=== PATIENT | female | born 1955 | race Caucasian/White ===

== ENCOUNTER 2017-06-17 09:53 | Emergency (ER) | payer BC ==
--- NOTE | 2017-06-17 10:41 | EDM.PDOC ---
<Larson,Lorene - Last Filed: 06/17/17 12:16> ED HPI GENERAL MEDICAL PROBLEM - General Chief Complaint: Cardiovascular Problem Stated Complaint: [id number] BLOOD PRESSURE AND NAUSEA. THREW UP. Time Seen by Provider: 06/17/17 10:41 - Related Data Allergies Allergy/AdvReac Type Severity Reaction Status Date / Time No Known Allergies Allergy Verified 01/06/14 14:20 Home Meds: Home Meds Aspirin [Low Dose Aspirin EC] 81 mg PO DAILY 01/06/14 [History] Hydrochlorothiazide 25 mg PO DAILY 01/06/14 [History] Metoprolol Succinate [Toprol XL] 25 mg PO DAILY 01/06/14 [History] Hydrochlorothiazide 25 mg PO DAILY 06/17/17 [History] Losartan Potassium [Cozaar] 100 mg PO DAILY 06/17/17 [History] Multivit with Calcium,Iron,Min [Essential Daily] 1 tab PO DAILY 06/17/17 [ History] Course - Vital Signs Last Recorded V/S: Last Vital Signs Temp 36.3 C 06/17/17 10:23 Pulse 70 06/17/17 10:23 Resp 16 06/17/17 10:23 BP 188/85 H 06/17/17 10:46 Pulse Ox 98 06/17/17 10:23 - Orders/Labs/Meds Orders: Active Orders 24 hr Category Date Time Status EKG Documentation Completion [RC] STAT Care 06/17/17 10:44 Active UA W/MICROSCOPIC [URIN] Stat Lab 06/17/17 11:49 Ordered Labs: Laboratory Tests 06/17/17 06/17/17 06/17/17 Range/Units 11:01 11:01 11:01 WBC 8.6 (5.0-10.0) 10^3/uL RBC 4.47 (4.2-5.4) 10^6/uL Hgb 14.2 (12.0-16.0) g/dL Hct 42.0 (37.0-47.0) % MCV 94.0 (80-100) fL MCH 31.8 (27.0-34.0) pg MCHC 33.8 (33.0-35.0) g/dL Plt Count 265 (150-450) 10^3/uL Neut % (Auto) 84.8 H (42.2-75.2) % Lymph % (Auto) 11.3 L (20.5-50.1) % [place] % (Auto) 3.6 (2-8) % Eos % (Auto) 0.1 L (1.0-3.0) % Baso % (Auto) 0.2 (0.0-1.0) % PT 9.8 (9.0-12.0) SEC INR 1.0 (0.9-1.2) APTT 24.8 (22.0-34.0) SEC Sodium 139 (135-145) mmol/L Potassium 3.5 L (3.6-5.0) mmol/L Chloride 106 (101-111) mmol/L Carbon Dioxide 27.0 (21.0-31.0) mmol/L Anion Gap 9.5 BUN 11 (7-18) mg/dL Creatinine 0.7 (0.6-1.3) mg/dL Est Cr Clr Drug Dosing 71.96 mL/min Estimated GFR (MDRD) > 60 BUN/Creatinine Ratio 15.71 Glucose 127 H (74-105) mg/dL Calcium 9.1 (8.4-10.2) mg/dl Magnesium 2.0 (1.8-2.5) mg/dL Total Bilirubin 0.7 (0.2-1.0) mg/dL AST 22 (10-42) IU/L ALT 18 (10-60) IU/L Alkaline Phosphatase 72 (42-121) IU/L Troponin I < 0.02 (0.00-0.02) ng/ml Total Protein 7.2 (6.7-8.2) g/dl Albumin 3.8 (3.2-5.5) g/dl Globulin 3.4 Albumin/Globulin Ratio 1.12 Urine Color (YELLOW) Urine Appearance (CLEAR) Urine pH (5.0-9.0) Ur Specific [place] (1.005-1.030) Urine Protein (NEGATIVE) Urine Glucose (UA) (NEGATIVE) Urine Ketones (NEGATIVE) Urine Occult Blood (NEGATIVE) Urine Nitrite (NEGATIVE) Urine Bilirubin (NEGATIVE) Urine Urobilinogen (0.2-1.0) mg/dL Ur Leukocyte Esterase (NEGATIVE) Urine RBC /HPF Urine WBC (0-5/HPF) /HPF Ur Epithelial Cells /HPF Urine Bacteria (0-FEW/HPF) /HPF 06/17/17 Range/Units 11:49 WBC (5.0-10.0) 10^3/uL RBC (4.2-5.4) 10^6/uL Hgb (12.0-16.0) g/dL Hct (37.0-47.0) % MCV (80-100) fL MCH (27.0-34.0) pg MCHC (33.0-35.0) g/dL Plt Count (150-450) 10^3/uL Neut % (Auto) (42.2-75.2) % Lymph % (Auto) (20.5-50.1) % [place] % (Auto) (2-8) % Eos % (Auto) (1.0-3.0) % Baso % (Auto) (0.0-1.0) % PT (9.0-12.0) SEC INR (0.9-1.2) APTT (22.0-34.0) SEC Sodium (135-145) mmol/L Potassium (3.6-5.0) mmol/L Chloride (101-111) mmol/L Carbon Dioxide (21.0-31.0) mmol/L Anion Gap BUN (7-18) mg/dL Creatinine (0.6-1.3) mg/dL Est Cr Clr Drug Dosing mL/min Estimated GFR (MDRD) BUN/Creatinine Ratio Glucose (74-105) mg/dL Calcium (8.4-10.2) mg/dl Magnesium (1.8-2.5) mg/dL Total Bilirubin (0.2-1.0) mg/dL AST (10-42) IU/L ALT (10-60) IU/L Alkaline Phosphatase (42-121) IU/L Troponin I (0.00-0.02) ng/ml Total Protein (6.7-8.2) g/dl Albumin (3.2-5.5) g/dl Globulin Albumin/Globulin Ratio Urine Color Yellow (YELLOW) Urine Appearance Clear (CLEAR) Urine pH 7.5 (5.0-9.0) Ur Specific [place] 1.015 (1.005-1.030) Urine Protein Negative (NEGATIVE) Urine Glucose (UA) Negative (NEGATIVE) Urine Ketones Negative (NEGATIVE) Urine Occult Blood Negative (NEGATIVE) Urine Nitrite Negative (NEGATIVE) Urine Bilirubin Negative (NEGATIVE) Urine Urobilinogen 0.2 (0.2-1.0) mg/dL Ur Leukocyte Esterase Negative (NEGATIVE) Urine RBC 0-5 /HPF Urine WBC 0-5 (0-5/HPF) /HPF Ur Epithelial Cells Rare /HPF Urine Bacteria Not seen (0-FEW/HPF) /HPF Meds: Medications Discontinued Medications Generic Name Dose Route Start Last Admin Trade Name Freq PRN Reason Stop Dose Admin Ondansetron HCl 4 mg 06/17/17 10:44 06/17/17 11:13 Zofran IV 06/17/17 10:45 4 mg ONETIME ONE Administration - Radiology Interpretation Free Text/Narrative:: Head ct without contrast: IMPRESSION: No acute cerebral hemorrhage or edema. Thank you for allowing us to participate in the care of your patient. Dictated and Authenticated by: Rama Menjivar MD 06/17/2017 12:12 PM Central Time ([place] & [place]) See rad report Departure - Departure Disposition: Home, Self-Care 01 Clinical Impression: Vertigo Instructions: Vertigo Referrals: Diane Rodriguez PA [Primary Care Provider] - Forms: ED Department Discharge Additional Instructions: Continue to monitor symptoms. If worsening vertigo or new neurologic symptoms such as slurred speech, weakness, worsening vision, you should return immediately to the ED. Otherwise make an appointment with your PCP for follow up of vertigo. You may take Meclizine 25 mg up to twice daily as needed for the vertigo symptoms. For hypertension take home medications with the exception of Metoprolol. Hold metoprolol for today due to slow heart rate at rest. You will need to follow up with you PCP for this. - My Orders Last 24 Hours: My Active Orders 06/17/17 10:44 EKG Documentation Completion [RC] STAT 06/17/17 11:49 UA W/MICROSCOPIC [URIN] Stat - Assessment/Plan Last 24 Hours: My Active Orders 06/17/17 10:44 EKG Documentation Completion [RC] STAT 06/17/17 11:49 UA W/MICROSCOPIC [URIN] Stat <Taye Serna - Last Filed: 06/17/17 12:27> ED HPI GENERAL MEDICAL PROBLEM - General Source of Information: Reports: Patient History Limitations: Reports: No Limitations - History of Present Illness INITIAL COMMENTS - FREE TEXT/NARRATIVE: Patient presents to the ED with symptoms of vertigo. She reports this morning she had severe symptoms of vertigo with the room spinning rapidly. It did not resolve with change in position and was accompanied by nausea. She reports she had been feeling well up until this morning. No recent cough, sore throat, rhinorrhea, congestion. No changes in hearing or tinnitus. She tried to go back to sleep. She then got up and walked to the bathroom. She remembers it being very difficult but denies feeling like she was going to the right or left. She did not fall. She has no history of trauma. She states her vision is changed in that it is difficult to focus with the room moving. There are no alleviating or aggravating factors. She has a history of hypertension and has not recently taken her medication. Did take ASA this AM. She is not diabetic. She did drive here today. Past Medical History HEENT History: Reports: Impaired Vision Cardiovascular History: Reports: Hypertension. Denies: [place], Syncope - Past Surgical History HEENT Surgical History: Reports: Adenoidectomy, Tonsillectomy Female Surgical History: Reports: Hysterectomy Musculoskeletal Surgical History: Reports: Carpal Tunnel, Knee Replacement, Shoulder Surgery Social & Family History - Family History Family Medical History: Noncontributory - Tobacco Use Smoking Status *Q: Never Smoker - Caffeine Use Caffeine Use: Reports: Soda - Recreational Drug Use Recreational Drug Use: No ED ROS GENERAL - Review of Systems Review Of Systems: See Below Constitutional: Denies: Fever, Chills, Diaphoresis HEENT: Denies: Ear Discharge, Ear Pain, Eye Discharge, Eye Pain, Hearing Loss, Rhinitis, Throat Pain Respiratory: Denies: Shortness of Breath, Wheezing, Cough Cardiovascular: Denies: Chest Pain, Dyspnea on Exertion, Palpitations Endocrine: Reports: No Symptoms GI/Abdominal: Denies: Abdominal Pain, Constipation, Diarrhea : Reports: No Symptoms Musculoskeletal: Reports: No Symptoms Neurological: Reports: Difficulty Walking. Denies: Pre-Existing Deficit, Syncope, Trouble Speaking, Weakness, Change in Speech Psychiatric: Reports: No Symptoms ED EXAM, GENERAL - Physical Exam Exam: See Below Exam Limited By: No Limitations General Appearance: Alert, WD/WN Eye Exam: Bilateral Eye: Nystagmus (lateral ), PERRL Ears: Normal External Exam, Normal Canal, Normal TMs Nose: Normal Inspection, Normal Mucosa Throat/Mouth: Normal Inspection, Normal Oropharynx, No Airway Compromise Head: Atraumatic, Normocephalic Neck: Normal Inspection, Supple, Non-Tender Respiratory/Chest: No Respiratory Distress, Lungs Clear, Normal Breath Sounds Cardiovascular: Regular Rate, Rhythm, No Murmur GI/Abdominal: Normal Bowel Sounds, Soft, Non-Tender, No Distention (Female) Exam: Deferred Rectal (Female) Exam: Deferred Extremities: Normal Inspection, Non-Tender Neurological: Alert, Oriented, Other (Lateral nystagmus noted. Gaze conjugate. No facial droop. No arm drift. Strength equal and symmetric. ) Psychiatric: Normal Affect, Normal Mood Skin Exam: Warm, Dry, Intact Lymphatic: No Adenopathy EKG INTERPRETATION EKG Date: 06/17/17 Time: 10:55 EKG Interpretation Comments: Sinus bradycardia without acute st segment changes Course - Orders/Labs/Meds Orders: Active Orders 24 hr Category Date Time Status EKG Documentation Completion [RC] STAT Care 06/17/17 10:44 Active UA W/MICROSCOPIC [URIN] Stat Lab 06/17/17 11:49 Ordered Labs: Laboratory Tests 06/17/17 06/17/17 06/17/17 Range/Units 11:01 11:01 11:01 WBC 8.6 (5.0-10.0) 10^3/uL RBC 4.47 (4.2-5.4) 10^6/uL Hgb 14.2 (12.0-16.0) g/dL Hct 42.0 (37.0-47.0) % MCV 94.0 (80-100) fL MCH 31.8 (27.0-34.0) pg MCHC 33.8 (33.0-35.0) g/dL Plt Count 265 (150-450) 10^3/uL Neut % (Auto) 84.8 H (42.2-75.2) % Lymph % (Auto) 11.3 L (20.5-50.1) % [place] % (Auto) 3.6 (2-8) % Eos % (Auto) 0.1 L (1.0-3.0) % Baso % (Auto) 0.2 (0.0-1.0) % PT 9.8 (9.0-12.0) SEC INR 1.0 (0.9-1.2) APTT 24.8 (22.0-34.0) SEC Sodium 139 (135-145) mmol/L Potassium 3.5 L (3.6-5.0) mmol/L Chloride 106 (101-111) mmol/L Carbon Dioxide 27.0 (21.0-31.0) mmol/L Anion Gap 9.5 BUN 11 (7-18) mg/dL Creatinine 0.7 (0.6-1.3) mg/dL Est Cr Clr Drug Dosing 71.96 mL/min Estimated GFR (MDRD) > 60 BUN/Creatinine Ratio 15.71 Glucose 127 H (74-105) mg/dL Calcium 9.1 (8.4-10.2) mg/dl Magnesium 2.0 (1.8-2.5) mg/dL Total Bilirubin 0.7 (0.2-1.0) mg/dL AST 22 (10-42) IU/L ALT 18 (10-60) IU/L Alkaline Phosphatase 72 (42-121) IU/L Troponin I < 0.02 (0.00-0.02) ng/ml Total Protein 7.2 (6.7-8.2) g/dl Albumin 3.8 (3.2-5.5) g/dl Globulin 3.4 Albumin/Globulin Ratio 1.12 Urine Color (YELLOW) Urine Appearance (CLEAR) Urine pH (5.0-9.0) Ur Specific [place] (1.005-1.030) Urine Protein (NEGATIVE) Urine Glucose (UA) (NEGATIVE) Urine Ketones (NEGATIVE) Urine Occult Blood (NEGATIVE) Urine Nitrite (NEGATIVE) Urine Bilirubin (NEGATIVE) Urine Urobilinogen (0.2-1.0) mg/dL Ur Leukocyte Esterase (NEGATIVE) Urine RBC /HPF Urine WBC (0-5/HPF) /HPF Ur Epithelial Cells /HPF Urine Bacteria (0-FEW/HPF) /HPF 06/17/17 Range/Units 11:49 WBC (5.0-10.0) 10^3/uL RBC (4.2-5.4) 10^6/uL Hgb (12.0-16.0) g/dL Hct (37.0-47.0) % MCV (80-100) fL MCH (27.0-34.0) pg MCHC (33.0-35.0) g/dL Plt Count (150-450) 10^3/uL Neut % (Auto) (42.2-75.2) % Lymph % (Auto) (20.5-50.1) % [place] % (Auto) (2-8) % Eos % (Auto) (1.0-3.0) % Baso % (Auto) (0.0-1.0) % PT (9.0-12.0) SEC INR (0.9-1.2) APTT (22.0-34.0) SEC Sodium (135-145) mmol/L Potassium (3.6-5.0) mmol/L Chloride (101-111) mmol/L Carbon Dioxide (21.0-31.0) mmol/L Anion Gap BUN (7-18) mg/dL Creatinine (0.6-1.3) mg/dL Est Cr Clr Drug Dosing mL/min Estimated GFR (MDRD) BUN/Creatinine Ratio Glucose (74-105) mg/dL Calcium (8.4-10.2) mg/dl Magnesium (1.8-2.5) mg/dL Total Bilirubin (0.2-1.0) mg/dL AST (10-42) IU/L ALT (10-60) IU/L Alkaline Phosphatase (42-121) IU/L Troponin I (0.00-0.02) ng/ml Total Protein (6.7-8.2) g/dl Albumin (3.2-5.5) g/dl Globulin Albumin/Globulin Ratio Urine Color Yellow (YELLOW) Urine Appearance Clear (CLEAR) Urine pH 7.5 (5.0-9.0) Ur Specific [place] 1.015 (1.005-1.030) Urine Protein Negative (NEGATIVE) Urine Glucose (UA) Negative (NEGATIVE) Urine Ketones Negative (NEGATIVE) Urine Occult Blood Negative (NEGATIVE) Urine Nitrite Negative (NEGATIVE) Urine Bilirubin Negative (NEGATIVE) Urine Urobilinogen 0.2 (0.2-1.0) mg/dL Ur Leukocyte Esterase Negative (NEGATIVE) Urine RBC 0-5 /HPF Urine WBC 0-5 (0-5/HPF) /HPF Ur Epithelial Cells Rare /HPF Urine Bacteria Not seen (0-FEW/HPF) /HPF Meds: Medications Discontinued Medications Generic Name Dose Route Start Last Admin Trade Name Freq PRN Reason Stop Dose Admin Ondansetron HCl 4 mg 06/17/17 10:44 06/17/17 11:13 Zofran IV 06/17/17 10:45 4 mg ONETIME ONE Administration - Re-Assessments/Exams Free Text/Narrative Re-Assessment/Exam: Discussed available laboratory results with the patient. Patient is feeling somewhat better. Vertigo symptoms are now mild. Nausea slightly improved. Would like to go home. BP improved with resting in ED. Will reassess when CT report returns. 06/17/17 11:40 Free Text/Narrative Re-Assessment/Exam: Discussed head CT and laboratory results. She is feeling better after some sleep. She is able to ambulate with me in the [place]. Repeat neuro exam unchanged. Vertigo symptoms improved for patient. Will give Antivert and have her follow up with her PCP. She needs to return immediately for worsening symptoms or new neurologic symptoms which were discussed with the patient. 06/17/17 12:21 Departure - Departure Time of Disposition: 12:23 Condition: Fair - My Orders Last 24 Hours: My Active Orders 06/17/17 10:44 EKG Documentation Completion [RC] STAT 06/17/17 11:49 UA W/MICROSCOPIC [URIN] Stat - Assessment/Plan Last 24 Hours: My Active Orders 06/17/17 10:44 EKG Documentation Completion [RC] STAT 06/17/17 11:49 UA W/MICROSCOPIC [URIN] Stat
[2017-06-17] MEDS ORDERED: Ondansetron 4 MG/2 ML SDV IV ONE (10:44)
[2017-06-17 11:29] LABS: CHLORIDE,CL 106 mmol/L (101-111); SODIUM,NA 139 mmol/L (135-145)
--- NOTE | 2017-06-19 13:21 | EKG ---
06/17/2017- ELA INGRAM - FINDINGS: EKG, per my reading, shows sinus rhythm at the rate of 59. MOD /[id number]
== END 2017-06-17 12:37 | disposition home or self-care (01) ==
LOC: DL.ED 09:53
DX: R42 Dizziness and giddiness (principal); I10 Essential (primary) hypertension; Z79.82 Long term (current) use of aspirin; Z79.899 Other long term (current) drug therapy
CPT/HCPCS: 36415; 70450; 80053; 81001; 83735; 84484; 85025; 85610; 85730; 93005; 96374; 99284; J2405

== ENCOUNTER 2019-10-15 18:31 | Emergency (ER) | payer MEDICARE, OTHER ==
[2019-10-15 20:02] LABS: ANION GAP 11.6 mEq/L (7-13)
--- NOTE | 2019-10-15 20:20 | CR ---
PROCEDURE INFORMATION: Exam: XR Chest, 2 Views Exam date and time: 10/15/2019 8:08 PM Age: 64 years old Clinical indication: Cough and fever and shortness of breath; Additional info: Cough fever SOB TECHNIQUE: Imaging protocol: XR of the chest Views: 2 views. COMPARISON: No relevant prior studies available. FINDINGS: Lungs: Unremarkable. No consolidation. Pleural space: Unremarkable. No pleural effusion. No pneumothorax. Heart/Mediastinum: Unremarkable. No cardiomegaly. Bones/joints: Unremarkable. IMPRESSION: No acute findings.
[2019-10-15] MEDS ORDERED: Albuterol/Ipratropium 3.0-0.5 MG/3 ML Neb Soln NEB ONE (20:40)
[2019-10-15] MEDS ORDERED: predniSONE 20 MG Tab PO ONE (20:40)
--- NOTE | 2019-10-15 20:55 | EDM.PDOC ---
ED HPI GENERAL MEDICAL PROBLEM - General Chief Complaint: Respiratory Problem Stated Complaint: COUGH, THROWING UP, CHEST HURTS Time Seen by Provider: 10/15/19 20:45 Source of Information: Reports: Patient History Limitations: Reports: No Limitations - History of Present Illness INITIAL COMMENTS - FREE TEXT/NARRATIVE: cough fever nauseous not feeling well concerned with covid. - Related Data Allergies Allergy/AdvReac Type Severity Reaction Status Date / Time No Known Allergies Allergy Verified 10/15/19 19:13 Home Meds: Home Meds Metoprolol Succinate [Toprol XL] 25 mg PO DAILY 01/06/14 [History] hydroCHLOROthiazide [Hydrochlorothiazide] 25 mg PO DAILY 01/06/14 [History] Losartan Potassium [Cozaar] 100 mg PO DAILY 06/17/17 [History] Multivit with Calcium,Iron,Min [Essential Daily] 1 tab PO DAILY 06/17/17 [History] Past Medical History HEENT History: Reports: Impaired Vision Cardiovascular History: Reports: Hypertension - Infectious Disease History Infectious Disease History: Reports: Chicken Pox, Measles, Mumps - Past Surgical History HEENT Surgical History: Reports: Adenoidectomy, Tonsillectomy Female Surgical History: Reports: Hysterectomy Musculoskeletal Surgical History: Reports: Carpal Tunnel, Knee Replacement, Shoulder Surgery Social & Family History - Family History Family Medical History: Noncontributory - Tobacco Use Smoking Status *Q: Never Smoker Second Hand Smoke Exposure: No - Caffeine Use Caffeine Use: Reports: None - Recreational Drug Use Recreational Drug Use: No ED ROS GENERAL - Review of Systems Review Of Systems: Comprehensive ROS is negative, except as noted in HPI. ED EXAM, GENERAL - Physical Exam Exam: See Below Exam Limited By: No Limitations General Appearance: Alert, WD/WN, Mild Distress, Other (discomfort) Ears: Hearing Grossly Normal Throat/Mouth: Normal Voice, No Airway Compromise Head: Atraumatic Neck: Non-Tender, Full Range of Motion Respiratory/Chest: No Accessory Muscle Use, Decreased Breath Sounds, Rhonchi, Wheezing Cardiovascular: Regular Rate, Rhythm GI/Abdominal: Soft, Non-Tender Neurological: Alert, Oriented, Normal Cognition, Normal Gait, No Motor/Sensory Deficits Psychiatric: Normal Affect, Normal Mood Skin Exam: Warm, Dry, Normal Color Lymphatic: No Adenopathy Course - Vital Signs Last Recorded V/S: Last Vital Signs Temp 37.6 C 10/15/19 19:14 Pulse 108 H 10/15/19 19:14 Resp 21 H 10/15/19 19:14 BP 161/76 H 10/15/19 19:14 Pulse Ox 97 10/15/19 19:14 - Orders/Labs/Meds Labs: Laboratory Tests 10/15/19 10/15/19 10/15/19 Range/Units 19:32 19:32 19:32 WBC 11.1 H (5.0-10.0) 10^3/uL RBC 4.36 (4.2-5.4) 10^6/uL Hgb 13.6 (12.0-16.0) g/dL Hct 40.6 (37.0-47.0) % MCV 93.1 (80-100) fL MCH 31.2 (27.0-34.0) pg MCHC 33.5 (33.0-35.0) g/dL Plt Count 265 (150-450) 10^3/uL Neut % (Auto) 70.3 (42.2-75.2) % Lymph % (Auto) 19.1 L (20.5-50.1) % [place] % (Auto) 6.6 (2-8) % Eos % (Auto) 3.7 H (1.0-3.0) % Baso % (Auto) 0.3 (0.0-1.0) % Sodium 144 (136-145) mmol/L Potassium 2.6 L (3.5-5.1) mmol/L Chloride 104 (98-107) mmol/L Carbon Dioxide 31 (21-32) mmol/L Anion Gap 11.6 (7-13) mEq/L BUN 9 (7-18) mg/dL Creatinine 1.04 H (0.55-1.02) mg/dL Est Cr Clr Drug Dosing 46.57 mL/min Estimated GFR (MDRD) 53 BUN/Creatinine Ratio 8.7 (No establ ref range) Glucose 133 H (74-99) mg/dL Lactic Acid 2.2 H* (0.4-2.0) mmol/L Calcium 8.8 (8.5-10.1) mg/dL Total Bilirubin 0.8 (0.2-1.0) mg/dL AST 18 (15-37) U/L ALT 22 (14-59) U/L Alkaline Phosphatase 85 (46-116) U/L Total Protein 7.4 (6.4-8.2) g/dL Albumin 3.4 (3.4-5.0) g/dL Globulin 4.0 Albumin/Globulin Ratio 0.9 COVID-19 ([facility]) (NEGATIVE) 10/15/19 Range/Units 19:33 WBC (5.0-10.0) 10^3/uL RBC (4.2-5.4) 10^6/uL Hgb (12.0-16.0) g/dL Hct (37.0-47.0) % MCV (80-100) fL MCH (27.0-34.0) pg MCHC (33.0-35.0) g/dL Plt Count (150-450) 10^3/uL Neut % (Auto) (42.2-75.2) % Lymph % (Auto) (20.5-50.1) % [place] % (Auto) (2-8) % Eos % (Auto) (1.0-3.0) % Baso % (Auto) (0.0-1.0) % Sodium (136-145) mmol/L Potassium (3.5-5.1) mmol/L Chloride (98-107) mmol/L Carbon Dioxide (21-32) mmol/L Anion Gap (7-13) mEq/L BUN (7-18) mg/dL Creatinine (0.55-1.02) mg/dL Est Cr Clr Drug Dosing mL/min Estimated GFR (MDRD) BUN/Creatinine Ratio (No establ ref range) Glucose (74-99) mg/dL Lactic Acid (0.4-2.0) mmol/L Calcium (8.5-10.1) mg/dL Total Bilirubin (0.2-1.0) mg/dL AST (15-37) U/L ALT (14-59) U/L Alkaline Phosphatase (46-116) U/L Total Protein (6.4-8.2) g/dL Albumin (3.4-5.0) g/dL Globulin Albumin/Globulin Ratio COVID-19 ([facility]) Negative (NEGATIVE) Meds: Medications Discontinued Medications Generic Name Dose Route Start Last Admin Trade Name Freq PRN Reason Stop Dose Admin Albuterol/Ipratropium 3 ml 10/15/19 20:40 10/15/19 20:53 Duoneb 3.0-0.5 Mg/3 Ml NEB 10/15/19 20:41 3 ml ONETIME ONE Administration Prednisone 20 mg 10/15/19 20:40 10/15/19 20:52 Prednisone PO 10/15/19 20:41 20 mg ONETIME ONE Administration - Re-Assessments/Exams Free Text/Narrative Re-Assessment/Exam: 10/15/19 20:46 results discussed with pt Departure - Departure Time of Disposition: 21:07 Disposition: Home, Self-Care 01 Condition: Good Clinical Impression: Bronchospasm with bronchitis, acute - Discharge Information Instructions: Acute Bronchitis, Adult, [id number] Forms: ED Department Discharge Additional Instructions: 1) rest and sleep as much as possible 2) don't lay flat to sleep 3) take tylneol or motrin as needed for fever 4) use neb twice daily for breathing 5) follow up at clinic rx given; medrol ana duoneb bid prn x 1 Sepsis Event Note (ED) - Evaluation Sepsis Screening Result: No Definite Risk - Focused Exam Vital Signs: Vital Signs Temp Pulse Resp BP Pulse Ox 10/15/19 19:14 37.6 C 108 H 21 H 161/76 H 97
== END 2019-10-15 21:07 | disposition home or self-care (01) ==
LOC: DL.ED 18:31
DX: J20.9 Acute bronchitis, unspecified (principal); I10 Essential (primary) hypertension; Z79.899 Other long term (current) drug therapy; Z20.828 Contact with and (suspected) exposure to other viral communicable diseases
CPT/HCPCS: 36415; 71046; 80053; 83605; 85025; 93005; 99283; 99284-25; J7512; J7620-GY; U0002

== ENCOUNTER 2020-11-05 16:25 | Emergency (ER) | payer MEDICARE, OTHER ==
[2020-11-05] MEDS ORDERED: Levofloxacin 500 MG Tab PO ONE (16:26)
[2020-11-05] MEDS ORDERED: Benzonatate 100 MG Cap PO ONE (16:26)
[2020-11-05] MEDS ORDERED: Sodium Chloride 0.9% 10 ML Syringe FLUSH PRN (18:14)
[2020-11-05] MEDS ORDERED: Sodium Chloride 0.9% 1,000 ML IV ONE (18:15)
[2020-11-05] MEDS ORDERED: Acetaminophen 325 MG Tab PO ONE (18:17)
--- NOTE | 2020-11-05 18:20 | EDM.PDOC ---
<Haja Nur - Last Filed: 11/05/20 18:14> ED HPI GENERAL MEDICAL PROBLEM - General Chief Complaint: Respiratory Problem Stated Complaint: COUGH, RUNNY NOSE, HEADACHE IN LT [facility] Time Seen by Provider: 11/05/20 18:14 Source of Information: Reports: Patient History Limitations: Reports: No Limitations - History of Present Illness INITIAL COMMENTS - FREE TEXT/NARRATIVE: 65 y/o F c/o cough for 2 weeks which began producing yellow sputum 2 days ago. Today the pt states she has had fever, chills, srivastava, fatigue. She does not know exactly what her temp has been. The srivastava is over the L eye constant and sharp. She reports decreased appetite over the last few days. She denies trauma, NV, cp, db, neck pn, pelvic pn, constipation, diff voiding, extremity pain. Hx of htn. Onset: Gradual Duration: Day(s): Location: Reports: Head, Chest left mandaen Pain Score (Numeric/FACES): 5 - Related Data Allergies Allergy/AdvReac Type Severity Reaction Status Date / Time No Known Allergies Allergy Verified 11/05/20 17:02 Home Meds: Home Meds Metoprolol Succinate [Toprol XL] 25 mg PO DAILY 01/06/14 [History] hydroCHLOROthiazide [Hydrochlorothiazide] 25 mg PO DAILY 01/06/14 [History] Losartan Potassium [Cozaar] 100 mg PO DAILY 06/17/17 [History] Multivit with Calcium,Iron,Min [Essential Daily] 1 tab PO DAILY 06/17/17 [History] Past Medical History HEENT History: Reports: Impaired Vision Cardiovascular History: Reports: Hypertension Respiratory History: Reports: None Gastrointestinal History: Reports: None Genitourinary History: Reports: None Musculoskeletal History: Reports: None Neurological History: Reports: None Psychiatric History: Reports: None Endocrine/Metabolic History: Reports: None Hematologic History: Reports: None Immunologic History: Reports: None Oncologic (Cancer) History: Reports: None Dermatologic History: Reports: None - Infectious Disease History Infectious Disease History: Reports: Chicken Pox, Measles, Mumps - Past Surgical History HEENT Surgical History: Reports: Adenoidectomy, Tonsillectomy Female Surgical History: Reports: Hysterectomy Musculoskeletal Surgical History: Reports: Carpal Tunnel, Knee Replacement, Shoulder Surgery Social & Family History - Family History Family Medical History: No Pertinent Family History - Tobacco Use Tobacco Use Status *Q: Never Tobacco User Second Hand Smoke Exposure: No - Caffeine Use Caffeine Use: Reports: None - Recreational Drug Use Recreational Drug Use: No ED ROS GENERAL - Review of Systems Review Of Systems: Comprehensive ROS is negative, except as noted in HPI. ED EXAM, GENERAL - Physical Exam Exam: See Below Exam Limited By: No Limitations General Appearance: Alert, No Apparent Distress Eye Exam: Bilateral Eye: PERRL Nose: Normal Inspection, Normal Mucosa, No Blood Throat/Mouth: Normal Inspection, Normal Lips, Normal Teeth, Normal Gums, Normal Oropharynx, Normal Voice, No Airway Compromise Head: Atraumatic, Normocephalic Neck: Normal Inspection, Supple, Non-Tender, Full Range of Motion Respiratory/Chest: Other (Course lung sounds. ) Cardiovascular: Regular Rate, Rhythm, Tachycardia Peripheral Pulses: 2+: Radial (L), Radial (R) GI/Abdominal: Soft, Non-Tender (Female) Exam: Deferred Rectal (Female) Exam: Deferred Back Exam: Normal Inspection, Full Range of Motion Extremities: Normal Inspection, Normal Range of Motion, Non-Tender, Normal Capillary Refill, No Pedal Edema Neurological: Alert, Oriented, CN II-XII Intact, Normal Cognition, Normal Gait, Normal Reflexes, No Motor/Sensory Deficits Psychiatric: Normal Affect, Normal Mood Skin Exam: Dry, Intact, Other (hot to the touch) Departure - Departure Disposition: Home, Self-Care 01 Clinical Impression: URI (upper respiratory infection) Qualifiers: URI type: unspecified URI Qualified Code(s): J06.9 - Acute upper respiratory infection, unspecified - Discharge Information Instructions: Upper Respiratory Infection, Adult, [id number], Community- Acquired Pneumonia, Adult, [id number] Forms: ED Department Discharge Additional Instructions: rest diet as tolerated levaquin 750mg daily for one week deysi celeste 200mg every 8 hours as needed for cough tylenol 500mg every 4 hours as needed for discomfort clinic follow up recheck next week sooner if difficulty breathing Sepsis Event Note (ED) - Evaluation Sepsis Screening Result: Possible Sepsis Risk <Chelsie Napier - Last Filed: 11/06/20 02:40> ED HPI GENERAL MEDICAL PROBLEM - History of Present Illness INITIAL COMMENTS - FREE TEXT/NARRATIVE: Appetite poo, not eaten today. Only sips fluid. Hx CoVID in January, asymptomatic. Unvaccinated. Non Smoker. No hx asthma or COPD Course - Vital Signs Last Recorded V/S: Last Vital Signs Temp 99.8 F 11/05/20 16:58 Pulse 110 H 11/05/20 16:58 Resp 20 11/05/20 16:58 BP 139/106 H 11/05/20 16:58 Pulse Ox 92 L 11/05/20 16:58 - Orders/Labs/Meds Orders: Active Orders 24 hr Category Date Time Status CULTURE BLOOD [BC] Stat Lab 11/05/20 18:28 Received CULTURE BLOOD [BC] Stat Lab 11/05/20 18:33 Received CULTURE STREP A CONFIRMATION [] Stat Lab 11/05/20 16:50 Results STREP SCRN A RAPID W CULT CONF [] Stat Lab 11/05/20 16:50 Results Blood Culture x2 Reflex Set [OM.PC] Stat Ot 11/05/20 18:14 Ordered Isolation [COMM] Routine Ot 11/05/20 18:16 Active Peripheral IV Insertion Adult [OM.PC] Stat Ot 11/05/20 18:15 Ordered Labs: Laboratory Tests 11/05/20 11/05/20 11/05/20 Range/Units 16:50 18:28 18:28 WBC 14.2 H (5.0-10.0) 10^3/uL RBC 5.06 (4.2-5.4) 10^6/uL Hgb 15.5 D (12.0-16.0) g/dL Hct 47.0 (37.0-47.0) % MCV 92.9 (80-100) fL MCH 30.6 (27.0-34.0) pg MCHC 33.0 (33.0-35.0) g/dL Plt Count 307 (150-450) 10^3/uL Neut % (Auto) 74.1 (42.2-75.2) % Lymph % (Auto) 16.2 L (20.5-50.1) % Rogers % (Auto) 7.0 (2-8) % Eos % (Auto) 2.6 (1.0-3.0) % Baso % (Auto) 0.1 (0.0-1.0) % Sodium 139 (136-145) mmol/L Potassium 3.6 (3.5-5.1) mmol/L Chloride 100 (98-107) mmol/L Carbon Dioxide 29 (21-32) mmol/L Anion Gap 13.6 H (7-13) mEq/L BUN 10 (7-18) mg/dL Creatinine 1.04 H (0.55-1.02) mg/dL Est Cr Clr Drug Dosing 45.95 mL/min Estimated GFR (MDRD) 53 BUN/Creatinine Ratio 9.6 (No establ ref range) Glucose 123 H (70-99) mg/dL Lactic Acid (0.4-2.0) mmol/L Calcium 9.3 (8.5-10.1) mg/dL Total Bilirubin 1.1 H (0.2-1.0) mg/dL AST 16 (15-37) U/L ALT 20 (14-59) U/L Alkaline Phosphatase 112 (46-116) U/L C-Reactive Protein 4.3 H (0.0-0.9) mg/dL Total Protein 8.2 (6.4-8.2) g/dL Albumin 3.9 (3.4-5.0) g/dL Globulin 4.3 Albumin/Globulin Ratio 0.9 SARS-CoV-2 RNA ([facility]) Negative (NEGATIVE) 11/05/20 Range/Units 18:28 WBC (5.0-10.0) 10^3/uL RBC (4.2-5.4) 10^6/uL Hgb (12.0-16.0) g/dL Hct (37.0-47.0) % MCV (80-100) fL MCH (27.0-34.0) pg MCHC (33.0-35.0) g/dL Plt Count (150-450) 10^3/uL Neut % (Auto) (42.2-75.2) % Lymph % (Auto) (20.5-50.1) % Rogers % (Auto) (2-8) % Eos % (Auto) (1.0-3.0) % Baso % (Auto) (0.0-1.0) % Sodium (136-145) mmol/L Potassium (3.5-5.1) mmol/L Chloride (98-107) mmol/L Carbon Dioxide (21-32) mmol/L Anion Gap (7-13) mEq/L BUN (7-18) mg/dL Creatinine (0.55-1.02) mg/dL Est Cr Clr Drug Dosing mL/min Estimated GFR (MDRD) BUN/Creatinine Ratio (No establ ref range) Glucose (70-99) mg/dL Lactic Acid 1.0 (0.4-2.0) mmol/L Calcium (8.5-10.1) mg/dL Total Bilirubin (0.2-1.0) mg/dL AST (15-37) U/L ALT (14-59) U/L Alkaline Phosphatase (46-116) U/L C-Reactive Protein (0.0-0.9) mg/dL Total Protein (6.4-8.2) g/dL Albumin (3.4-5.0) g/dL Globulin Albumin/Globulin Ratio SARS-CoV-2 RNA ([facility]) (NEGATIVE) Meds: Medications Discontinued Medications Generic Name Dose Route Start Last Admin Trade Name Freq PRN Reason Stop Dose Admin Acetaminophen 975 mg 11/05/20 18:17 11/05/20 18:40 Acetaminophen 325 Mg Tab PO 11/05/20 18:18 975 mg NOW ONE Administration Albuterol/Ipratropium 3 ml 11/05/20 19:28 11/05/20 19:52 Albuterol/Ipratropium 3.0-0.5 Mg/3 Ml Neb Soln NEB 11/05/20 19:29 3 ml ONETIME ONE Administration Benzonatate Confirm 11/05/20 20:31 Benzonatate 100 Mg Cap Administered 11/05/20 20:32 Dose 400 mg .ROUTE .STK-MED ONE Sodium Chloride 1,000 mls @ 999 mls/hr 11/05/20 18:15 11/05/20 18:40 Normal Saline IV 11/05/20 19:15 999 mls/hr .BOLUS ONE Administration Ceftriaxone Sodium 1 gm/ 50 mls @ 100 mls/hr 11/05/20 19:28 11/05/20 19:52 Sodium Chloride IV 11/05/20 19:57 100 mls/hr ONETIME ONE Administration Levofloxacin Confirm 11/05/20 20:32 Levofloxacin 500 Mg Tab Administered 11/05/20 20:33 Dose 500 mg .ROUTE .STK-MED ONE Sodium Chloride 10 ml 11/05/20 18:14 11/05/20 18:40 Sodium Chloride 0.9% 10 Ml Syringe FLUSH 10 ml ASDIRECTED PRN Administration Keep Vein Open Departure - Departure Time of Disposition: 20:20 Condition: Good - Discharge Information *PRESCRIPTION DRUG MONITORING PROGRAM REVIEWED*: No *COPY OF PRESCRIPTION DRUG MONITORING REPORT IN PATIENT SUBHASH: No Sepsis Event Note (ED) - Focused Exam Vital Signs: Vital Signs Temp Pulse Resp BP Pulse Ox 11/05/20 16:58 99.8 F 110 H 20 139/106 H 92 L
[2020-11-05 19:00] LABS: ANION GAP 13.6 mEq/L (7-13)
[2020-11-05] MEDS ORDERED: cefTRIAXone 1 GM in Sodium Chloride 0.9% 50 ML IV ONE (19:28)
[2020-11-05] MEDS ORDERED: Albuterol/Ipratropium 3.0-0.5 MG/3 ML Neb Soln NEB ONE (19:28)
--- NOTE | 2020-11-05 19:36 | CR ---
PROCEDURE INFORMATION: Exam: XR Chest Exam date and time: 11/05/2020 7:01 PM Age: 65 years old Clinical indication: Cough and fever; Additional info: Cough, fever TECHNIQUE: Imaging protocol: XR of the chest. Views: 2 views. COMPARISON: CR Chest 2V 10/15/2019 8:08 PM FINDINGS: Lungs: Unremarkable. No consolidation. Pleural spaces: Unremarkable. No pleural effusion. No pneumothorax. Heart/Mediastinum: Unremarkable. No cardiomegaly. Bones/joints: Age appropriate. IMPRESSION: 1. No active disease of the chest. No pneumonia. 2. No significant interval change when compared to the CR Chest 2V 10/15/2019 8:08 PM.
[2020-11-05] MEDS ORDERED: Benzonatate 100 MG Cap ONE (20:31)
[2020-11-05] MEDS ORDERED: Levofloxacin 500 MG Tab ONE (20:32)
== END 2020-11-05 20:43 | disposition home or self-care (01) ==
LOC: DL.ED 16:25
DX: J06.9 Acute upper respiratory infection, unspecified (principal); I10 Essential (primary) hypertension; Z79.899 Other long term (current) drug therapy; Z20.822 Contact with and (suspected) exposure to COVID-19
CPT/HCPCS: 36415; 71046; 80053; 83605; 85025; 86140; 87040; 87081; 87430; 96365; 99284; A9270; J0696; J7030; U0002; J7620-GY

== ENCOUNTER 2022-08-18 07:26 | Day surgery (SDC) | payer MEDICARE, OTHER ==
[2022-08-18] MEDS ORDERED: Sodium Chloride 0.9% 10 ML Syringe IV ONE (07:27)
[2022-08-18] MEDS ORDERED: Dexamethasone 4 MG/ML SDV IV ONE (07:27)
[2022-08-18] MEDS ORDERED: Midazolam 1 MG/ML 2 ML SDV IV ONE (07:27)
[2022-08-18] MEDS ORDERED: Phenylephrine 10% Ophth Soln 5 ML Bot EYELF PRN (07:30)
[2022-08-18] MEDS ORDERED: Sodium Chloride 0.9% 10 ML Syringe FLUSH PRN (07:30)
[2022-08-18] MEDS ORDERED: Cataract Ophth Solution EYELF ONE (07:30)
[2022-08-18] MEDS ORDERED: Ondansetron 4 MG/2 ML SDV IVPUSH PRN (07:30)
[2022-08-18] MEDS ORDERED: Povidone-Iodine 5% Sterile Ophth Soln 30 ML Bottle EYELF ONE ×2 (07:30→08:37)
[2022-08-18] MEDS ORDERED: Moxifloxacin 0.5% Ophth Soln 3 ML Bottle EYELF ONE (07:30)
[2022-08-18] MEDS ORDERED: Acetaminophen/Codeine 300-30 MG Tab PO PRN (07:30)
[2022-08-18] MEDS ORDERED: Acetaminophen 325 MG Tab PO PRN (07:30)
[2022-08-18] MEDS ORDERED: Timolol Maleate 0.5% Ophth Soln 5 ML Bottle EYELF ONE (07:30)
[2022-08-18] MEDS ORDERED: Proparacaine 0.5% Ophth Soln 15 ML Bottle EYELF ONE ×2 (07:30→08:36)
[2022-08-18] MEDS ORDERED: Tropicamide 1% Ophth Soln 15 ML Bottle EYELF ONE (07:30)
[2022-08-18] MEDS ORDERED: Dexamethasone/Neomycin/Polymyxin B Ophth Oint 3.5 GM Tube EYELF ONE (08:37)
[2022-08-18] MEDS ORDERED: Apraclonidine 0.5% Ophth Soln 5 ML Bot EYELF ONE (08:37)
[2022-08-18] MEDS ORDERED: Lidocaine 1% 30 ML SDV ONE (08:37)
[2022-08-18] MEDS ORDERED: Diclofenac Sodium 0.1% Ophth Soln 5 ML Bottle EYELF ONE (08:37)
[2022-08-18] MEDS ORDERED: Balanced Salt Solution Ophth Irrig 500 ML Bottle IOCULAR ONE (08:38)
[2022-08-18] MEDS ORDERED: Chondroitin Sulfate/Hyaluronate Sodium Ophth Inj 0.75 ML Syringe EYELF ONE (08:38)
[2022-08-18] MEDS ORDERED: Vancomycin 500 MG SDV EYELF ONE (08:38)
== END 2022-08-18 09:16 | disposition home or self-care (01) ==
LOC: DL.SDS 07:26
PROVIDERS: ATTEND Ophthalmology
DX: H25.812 Combined forms of age-related cataract, left eye (principal); M79.7 Fibromyalgia; I20.9 Angina pectoris, unspecified; I10 Essential (primary) hypertension; Z90.710 Acquired absence of both cervix and uterus; Z90.89 Acquired absence of other organs; Z96.653 Presence of artificial knee joint, bilateral; Z79.82 Long term (current) use of aspirin; Z79.899 Other long term (current) drug therapy
CPT/HCPCS: 00142; 66984; A9270; J1100; J2250; J3370; V2632; J3490

== ENCOUNTER 2022-10-04 07:32 | Day surgery (SDC) | payer MEDICARE, OTHER ==
[~2022-10-04 07:32] MED LIST: Acetaminophen 325 MG Tab PO PRN; Acetaminophen/Codeine 300-30 MG Tab PO PRN; Cataract Ophth Solution EYERT ONE; Moxifloxacin 0.5% Ophth Soln 3 ML Bottle EYERT ONE; Ondansetron 4 MG/2 ML SDV IVPUSH PRN; Phenylephrine 10% Ophth Soln 5 ML Bot EYERT PRN; Povidone-Iodine 5% Sterile Ophth Soln 30 ML Bottle EYERT ONE; Proparacaine 0.5% Ophth Soln 15 ML Bottle EYERT ONE; Sodium Chloride 0.9% 10 ML Syringe FLUSH PRN; Timolol Maleate 0.5% Ophth Soln 5 ML Bottle EYERT ONE; Tropicamide 1% Ophth Soln 15 ML Bottle EYERT ONE
[2022-10-04] MEDS ORDERED: Proparacaine 0.5% Ophth Soln 15 ML Bottle EYERT ONE (08:36)
[2022-10-04] MEDS ORDERED: Povidone-Iodine 5% Sterile Ophth Soln 30 ML Bottle EYERT ONE (08:37)
[2022-10-04] MEDS ORDERED: Lidocaine 1% 30 ML SDV ONE (08:42)
[2022-10-04] MEDS ORDERED: Balanced Salt Solution Ophth Irrig 500 ML Bottle IOCULAR ONE (08:43)
[2022-10-04] MEDS ORDERED: Brimonidine 0.2% Ophth Soln 5 ML Bottle EYERT ONE (08:46)
[2022-10-04] MEDS ORDERED: Chondroitin Sulfate/Hyaluronate Sodium Ophth Inj 0.75 ML Syringe EYERT ONE (08:46)
[2022-10-04] MEDS ORDERED: Vancomycin 500 MG SDV EYERT ONE (08:46)
[2022-10-04] MEDS ORDERED: Diclofenac Sodium 0.1% Ophth Soln 5 ML Bottle EYERT ONE (08:48)
[2022-10-04] MEDS ORDERED: Dexamethasone/Neomycin/Polymyxin B Ophth Oint 3.5 GM Tube EYERT ONE (08:48)
== END 2022-10-04 09:18 | disposition home or self-care (01) ==
LOC: DL.SDS 07:32
PROVIDERS: ATTEND Ophthalmology
DX: H25.811 Combined forms of age-related cataract, right eye (principal); I10 Essential (primary) hypertension; M79.7 Fibromyalgia; Z98.890 Other specified postprocedural states; Z79.899 Other long term (current) drug therapy
CPT/HCPCS: 00142; A9270-GY; J3370; J3490; V2632

== ENCOUNTER 2024-02-29 16:40 | Emergency (ER) | payer MEDICARE, OTHER ==
[2024-02-29] MEDS ORDERED: Sodium Chloride 0.9% 10 ML Syringe FLUSH PRN (16:55)
[2024-02-29] MEDS: Ketorolac 30 MG/ML SDV IVPUSH ONE (17:04)
[2024-02-29] MEDS: Acetaminophen 500 MG Tab PO ONE (17:05)
[2024-02-29] MEDS: Albuterol 0.083% 2.5 MG/3 ML Neb Soln NEB ONE (17:11)
[2024-02-29] MEDS: Sodium Chloride 0.9% 1,000 ML IV ONE ×2 (17:12→18:22)
[2024-02-29] MEDS: Ondansetron 4 MG/2 ML SDV IVPUSH ONE (17:12)
[2024-02-29 17:15] LABS: BASOPHILS PERCENT AUTO 0.2 % (0.0-1.0); EOSINOPHILS PERCENT AUTO 3.8 % (1.0-3.0); HEMATOCRIT 43.2 % (37.0-47.0); HEMOGLOBIN 14.3 g/dL (12.0-16.0); LYMPHOCYTES PERCENT AUTO 9.1 % (20.5-50.1); MEAN CORPUSCULAR HEMOGLOBIN 30.8 pg (27.0-34.0); MEAN CORPUSCULAR HGB CONC 33.1 g/dL (33.0-35.0); MEAN CORPUSCULAR VOLUME 93.1 fL (80-100); MONOCYTES PERCENT AUTO 7.4 % (2-8); NEUTROPHILS PERCENT AUTO 79.5 % (42.2-75.2); PLATELET COUNT,PLT 258 10^3/uL (150-450); RED BLOOD CELL COUNT 4.64 10^6/uL (4.2-5.4); WHITE BLOOD CELL COUNT,WBC 9.2 10^3/uL (5.0-10.0)
[2024-02-29 17:33] LABS: A/G RATIO 0.8; ALANINE AMINOTRANSFERASE,ALT 22 U/L (14-59); ALBUMIN 3.5 g/dL (3.4-5.0); ALKALINE PHOSPHATASE 126 U/L (46-116); ASPARTATE AMNIOTRANSFERASE,AST 23 U/L (15-37); BILIRUBIN TOTAL 0.7 mg/dL (0.2-1.0); BLOOD UREA NITROGEN,BUN 8 mg/dL (7-18); BUN/CREATININE RATIO 7.1 (No establ ref range); C-REACTIVE PROTEIN 1.38 ng/dL (<=0.50); CALCIUM 8.8 mg/dL (8.5-10.1); CARBON DIOXIDE,CO2 29 mmol/L (21-32); CHLORIDE,CL 104 mmol/L (98-107); CREATININE 1.12 mg/dL (0.55-1.02); GLUCOSE RANDOM 124 mg/dL (70-99); MAGNESIUM 1.8 mg/dL (1.8-2.4); PROTEIN TOTAL,TP 7.7 g/dL (6.4-8.2); SODIUM,NA 142 mmol/L (136-145)
[2024-02-29 17:35] LABS: ESTIMATED GFR 53 mL/min (>=60)
[2024-02-29 17:37] LABS: LACTIC ACID 1.2 mmol/L (0.4-2.0)
[2024-02-29] MEDS: Potassium Chloride 10 MEQ Tab.ER PO ONE (18:03)
[2024-02-29] MEDS: Doxycycline 100 MG in Sodium Chloride 0.9% 100 ML IV ONE (18:12)
[2024-02-29] MEDS: Iopamidol 755 Mg/ML 100 ML Bottle IVPUSH ONE (18:21)
== END 2024-02-29 20:12 | disposition home or self-care (01) ==
LOC: DL.ED 16:40
DX: J18.9 Pneumonia, unspecified organism (principal); R79.1 Abnormal coagulation profile; I10 Essential (primary) hypertension; Z86.16 Personal history of COVID-19; Z90.710 Acquired absence of both cervix and uterus; Z79.899 Other long term (current) drug therapy
CPT/HCPCS: 36415; 71046; 71275; 80053; 83605; 83735; 85025; 85379; 86140; 87040; 87428-QW; 96361; 96365; 96375; 99284; 99285-25; A9270-GY; J1885; J2405; J3490; J7030; J7613-GY; Q9967

== ENCOUNTER 2024-03-01 16:14 | Inpatient (IN) | payer MEDICARE ==
[2024-03-01 17:07] LABS: BASOPHILS PERCENT AUTO 0.3 % (0.0-1.0); HEMATOCRIT 41.2 % (37.0-47.0); LYMPHOCYTES PERCENT AUTO 14.6 % (20.5-50.1); MEAN CORPUSCULAR HEMOGLOBIN 30.3 pg (27.0-34.0); MEAN CORPUSCULAR HGB CONC 31.6 g/dL (33.0-35.0); MONOCYTES PERCENT AUTO 13.9 % (2-8); NEUTROPHILS PERCENT AUTO 71.2 % (42.2-75.2); PLATELET COUNT,PLT 215 10^3/uL (150-450); RED BLOOD CELL COUNT 4.29 10^6/uL (4.2-5.4); WHITE BLOOD CELL COUNT,WBC 5.8 10^3/uL (5.0-10.0)
[2024-03-01] MEDS: Sodium Chloride 0.9% 10 ML Syringe FLUSH PRN (17:12)
[2024-03-01] MEDS: Albuterol/Ipratropium 3.0-0.5 MG/3 ML Neb Soln NEB ONE (17:12)
[2024-03-01 17:31] LABS: B-TYPE NATRIURETIC PEPTIDE,BNP 269 pg/ml (0-100)
[2024-03-01 17:35] LABS: LACTIC ACID 1.2 mmol/L (0.4-2.0)
[2024-03-01 17:41] LABS: ALANINE AMINOTRANSFERASE,ALT 21 U/L (14-59); ALBUMIN 3.1 g/dL (3.4-5.0); ALKALINE PHOSPHATASE 98 U/L (46-116); ANION GAP 12.6 mEq/L (7-13); ASPARTATE AMNIOTRANSFERASE,AST 31 U/L (15-37); BILIRUBIN TOTAL 0.4 mg/dL (0.2-1.0); BLOOD UREA NITROGEN,BUN 10 mg/dL (7-18); C-REACTIVE PROTEIN 3.76 ng/dL (<=0.50); CALCIUM 8.3 mg/dL (8.5-10.1); CARBON DIOXIDE,CO2 29 mmol/L (21-32); CHLORIDE,CL 105 mmol/L (98-107); CREATININE 1.25 mg/dL (0.55-1.02); GLUCOSE RANDOM 145 mg/dL (70-99); POTASSIUM,K 3.6 mmol/L (3.5-5.1); PROTEIN TOTAL,TP 7.2 g/dL (6.4-8.2); SODIUM,NA 143 mmol/L (136-145)
[2024-03-01 17:42] LABS: A/G RATIO 0.76; ESTIMATED GFR 47 mL/min (>=60)
[2024-03-01] MEDS ORDERED: oxyCODONE 5 MG Tab PO PRN (18:09)
[2024-03-01] MEDS: Enoxaparin 40 MG/0.4 ML Syringe SUBCUT SCH (20:13)
[2024-03-01] MEDS: Potassium Chloride 10 MEQ Tab.ER PO SCH (20:14)
[2024-03-01] MEDS: Chlorthalidone 25 MG Tab PO SCH (20:14)
[2024-03-01] MEDS: Aspirin 81 MG Tab.EC PO SCH (20:14)
[2024-03-01] MEDS: amLODIPine 5 MG Tab PO SCH (20:14)
[2024-03-01] MEDS: cefTRIAXone 1 GM Vial IVPUSH SCH (20:15)
[2024-03-01] MEDS: Sodium Chloride 0.9% 1,000 ML IV SCH (20:15)
[2024-03-01] MEDS: Azithromycin 500 MG in Sodium Chloride 0.9% 250 ML IV SCH (20:15)
[2024-03-01] MEDS: Acetaminophen 325 MG Tab PO PRN (20:30)
[2024-03-01] MEDS: Albuterol/Ipratropium 3.0-0.5 MG/3 ML Neb Soln NEB PRN (21:21)
[2024-03-01] MEDS: Doxycycline 100 MG in Sodium Chloride 0.9% 100 ML IV SCH (21:21)
[2024-03-02] MEDS ORDERED: Azithromycin 500 MG in Sodium Chloride 0.9% 250 ML IV SCH (06:17)
[2024-03-02 06:47] LABS: BASOPHILS PERCENT AUTO 0.4 % (0.0-1.0); EOSINOPHILS PERCENT AUTO 0.4 % (1.0-3.0); HEMOGLOBIN 11.9 g/dL (12.0-16.0); LYMPHOCYTES PERCENT AUTO 35.8 % (20.5-50.1); MEAN CORPUSCULAR HEMOGLOBIN 30.7 pg (27.0-34.0); MEAN CORPUSCULAR HGB CONC 31.3 g/dL (33.0-35.0); MEAN CORPUSCULAR VOLUME 97.9 fL (80-100); MONOCYTES PERCENT AUTO 17.6 % (2-8); NEUTROPHILS PERCENT AUTO 45.8 % (42.2-75.2); PLATELET COUNT,PLT 174 10^3/uL (150-450); RED BLOOD CELL COUNT 3.88 10^6/uL (4.2-5.4); WHITE BLOOD CELL COUNT,WBC 4.5 10^3/uL (5.0-10.0)
[2024-03-02 07:09] LABS: ANION GAP 10.3 mEq/L (7-13); CALCIUM 8.3 mg/dL (8.5-10.1); CREATININE 1.08 mg/dL (0.55-1.02); EST CRCL DRUG DOSING (CG) 42.45 mL/min; POTASSIUM,K 3.3 mmol/L (3.5-5.1)
[2024-03-02] MEDS: Lutein/Minerals/Vit A,C & E Tab PO SCH (10:49)
[2024-03-02] MEDS: Losartan 50 MG Tab PO SCH (10:51)
[2024-03-02] MEDS: DULoxetine 30 MG Cap PO SCH (10:52)
[2024-03-02] MEDS: Metoprolol Succinate 25 MG Tab.ER PO SCH (10:52)
[2024-03-02] MEDS: Multivitamin Tab PO SCH (10:53)
[2024-03-02] MEDS: Potassium Chloride 10 MEQ Tab.ER PO ONE ×2 (16:03→16:13)
[2024-03-02] MEDS: Ondansetron 4 MG/2 ML SDV IVPUSH PRN (16:10)
[2024-03-02] MEDS: Azithromycin 500 MG in Sodium Chloride 0.9% 250 ML IV SCH (20:34)
[2024-03-03] MEDS: guaiFENesin 600 MG Tab.ER PO SCH (11:04)
[2024-03-03] MEDS: Doxycycline 100 MG in Sodium Chloride 0.9% 100 ML IV SCH (11:39)
== END 2024-03-03 16:05 | disposition home or self-care (01) | DRG 193 ==
LOC: DL.ED 16:14 → DL.MS 16:52 → UNDOADMOB 16:52 → INTOOBSV 03-02 17:24 → OBSVTOIN 03-02 17:24
PROVIDERS: ADMIT Internal Medicine; ATTEND Internal Medicine
DX: J15.7 Pneumonia due to Mycoplasma pneumoniae (principal); J96.01 Acute respiratory failure with hypoxia; I10 Essential (primary) hypertension; F41.9 Anxiety disorder, unspecified; M19.90 Unspecified osteoarthritis, unspecified site; Z96.659 Presence of unspecified artificial knee joint; H26.9 Unspecified cataract; M79.7 Fibromyalgia; Z66 Do not resuscitate; Z79.2 Long term (current) use of antibiotics; Z79.82 Long term (current) use of aspirin; Z79.899 Other long term (current) drug therapy; Z86.16 Personal history of COVID-19; Z90.710 Acquired absence of both cervix and uterus
CPT/HCPCS: 36415; 80048; 80053; 83605; 83735; 83880; 84145; 85025; 86140; 87040; 87070; 87077; 87186; 87205; 94640; 96365; 96366; 96367; 96372; 96375; 97161-GP; 97165-GO; 99223; 99232; 99239; 99284; 99285; A9270-GY; G0378; J0456; J0696; J1650; J2405; J3490; J7030; J7050; J7620-GY

== ENCOUNTER 2024-03-08 11:21 | Emergency (ER) | payer MEDICARE ==
[2024-03-08] MEDS: Sodium Chloride 0.9% 1,000 ML IV ONE ×2 (11:55→12:11)
[2024-03-08 11:56] LABS: BASOPHILS PERCENT AUTO 0.1 % (0.0-1.0); EOSINOPHILS PERCENT AUTO 0.8 % (1.0-3.0); HEMATOCRIT 51.6 % (37.0-47.0); HEMOGLOBIN 17.5 g/dL (12.0-16.0); LYMPHOCYTES PERCENT AUTO 28.7 % (20.5-50.1); MEAN CORPUSCULAR HEMOGLOBIN 30.3 pg (27.0-34.0); MEAN CORPUSCULAR HGB CONC 33.9 g/dL (33.0-35.0); MEAN CORPUSCULAR VOLUME 89.3 fL (80-100); MONOCYTES PERCENT AUTO 10.3 % (2-8); NEUTROPHILS PERCENT AUTO 60.1 % (42.2-75.2); PLATELET COUNT,PLT 289 10^3/uL (150-450); RED BLOOD CELL COUNT 5.78 10^6/uL (4.2-5.4); WHITE BLOOD CELL COUNT,WBC 8.4 10^3/uL (5.0-10.0)
[2024-03-08] MEDS: Ondansetron 4 MG/2 ML SDV IVPUSH ONE (11:59)
[2024-03-08 12:16] LABS: A/G RATIO 0.9; ANION GAP 13.2 mEq/L (7-13); BILIRUBIN TOTAL 1.2 mg/dL (0.2-1.0); BUN/CREATININE RATIO 24.6 (No establ ref range); C-REACTIVE PROTEIN 0.58 ng/dL (<=0.50); CALCIUM 10.3 mg/dL (8.5-10.1); CREATININE 1.22 mg/dL (0.55-1.02); EST CRCL DRUG DOSING (CG) 37.58 mL/min; MAGNESIUM 2.2 mg/dL (1.8-2.4); POTASSIUM,K 3.2 mmol/L (3.5-5.1); PROTEIN TOTAL,TP 8.5 g/dL (6.4-8.2)
[2024-03-08] MEDS: Potassium Chloride 10 MEQ Tab.ER PO ONE (12:23)
[2024-03-08] MEDS: Take Home: Ondansetron 4 MG Tab.DIS, 5 Tab Pack PO ONE (12:24)
== END 2024-03-08 12:55 | disposition home or self-care (01) ==
LOC: DL.ED 11:21
DX: E86.0 Dehydration (principal); I10 Essential (primary) hypertension; Z86.16 Personal history of COVID-19; Z79.82 Long term (current) use of aspirin; Z79.899 Other long term (current) drug therapy; Z90.710 Acquired absence of both cervix and uterus
CPT/HCPCS: 36415; 80053; 83735; 85025; 86140; 96361; 96374; 99284; A9270; J2405; J7030